=== PATIENT | female | born 1990 | race Caucasian/White ===

== ENCOUNTER 2020-08-04 16:06 | Outpatient (CLI) | payer MEDICAID ==
[2020-08-04 16:53] VITALS: BP 104/65
[2020-08-04 17:32] LABS: Bacteria,Urine 2+ /HPF (Negative); Bilirubin,Urine NEG (Negative); Blood,Urine NEG (Negative); Color,Urine Amber (Yellow); Mucus,Urine 2+ /HPF; Protein,Urine <15 mg/dL mg/dL (Negative)
[2020-08-04] MEDS ORDERED: oxyCODONE /ACETAMINOPHEN 5-325MG TAB PO ONE (18:13)
[2020-08-04] MEDS ORDERED: LACTATED RINGERS 1,000 ML IV ONE (19:44)
[2020-08-04] MEDS ORDERED: MORPHINE 2 MG/1 ML INJ IV ONE (19:45)
== END 2020-08-04 23:09 | disposition home or self-care (01) ==
LOC: TRG 16:06 → APU 16:06 → TRG 23:09
PROVIDERS: ATTEND Obstetrics & Gynecology
DX: O26.892 Other specified pregnancy related conditions, second trimester (principal); M54.9 Dorsalgia, unspecified; R10.9 Unspecified abdominal pain; Z87.891 Personal history of nicotine dependence; Z3A.25 25 weeks gestation of pregnancy
CPT/HCPCS: 59025; 81001; 87086; 96361; 96374; J2270; J7120; 96360; 96375

== ENCOUNTER 2020-08-22 16:45 | Outpatient (CLI) | payer MEDICAID ==
[2020-08-22 17:51] VITALS: BP 114/68
[2020-08-22] MEDS ORDERED: oxyCODONE /ACETAMINOPHEN 5-325MG TAB PO ONE (18:00)
== END 2020-08-22 18:03 | disposition home or self-care (01) ==
LOC: APU 16:45 → TRG 16:45
PROVIDERS: ATTEND Obstetrics & Gynecology
DX: O47.02 False labor before 37 completed weeks of gestation, second trimester (principal); Z3A.27 27 weeks gestation of pregnancy
CPT/HCPCS: 59025

== ENCOUNTER 2020-10-09 13:02 | Outpatient (CLI) | payer MEDICAID ==
[2020-10-09 14:02] VITALS: BP 112/69
[2020-10-09] MEDS ORDERED: LACTATED RINGERS 1,000 ML IV SCH (14:15)
[2020-10-09 14:31] LABS: Bacteria,Urine 2+ /HPF (Negative); Bilirubin,Urine NEG (Negative); Blood,Urine NEG (Negative); Color,Urine Yellow (Yellow); Mucus,Urine 1+ /HPF; Protein,Urine <15 mg/dL mg/dL (Negative)
[2020-10-09] MEDS ORDERED: TERBUTALINE 1 MG/1 ML INJ SUB-Q SCH (15:00)
== END 2020-10-09 15:09 | disposition home or self-care (01) ==
LOC: TRG 13:02 → APU 13:02 → TRG 15:09
PROVIDERS: ATTEND Obstetrics & Gynecology
DX: O26.893 Other specified pregnancy related conditions, third trimester (principal); R10.9 Unspecified abdominal pain; Z3A.34 34 weeks gestation of pregnancy
CPT/HCPCS: 59025; 81001

== ENCOUNTER 2022-07-23 13:05 | Outpatient (CLI) | payer MEDICAID ==
[2022-07-23] MEDS ORDERED: LACTATED RINGERS 1,000 ML IV ONE (13:50)
[2022-07-23 14:00] VITALS: BP 119/71
[2022-07-23 16:00] LABS: Bacteria,Urine 1+ /HPF (Negative); Mucus,Urine 1+ /HPF
[2022-07-23 16:10] LABS: Color,Urine Yellow (Yellow)
== END 2022-07-23 16:18 | disposition home or self-care (01) ==
LOC: TRG 13:05 → APU 13:07 → TRG 16:18
PROVIDERS: ATTEND Obstetrics & Gynecology Gynecology
DX: O99.513 Diseases of the respiratory system complicating pregnancy, third trimester (principal); J00 Acute nasopharyngitis [common cold]; R05.9 Cough, unspecified; O26.893 Other specified pregnancy related conditions, third trimester; R10.30 Lower abdominal pain, unspecified; Z3A.31 31 weeks gestation of pregnancy
CPT/HCPCS: 59025; 81001; 96360; J7120